=== PATIENT | female | born 1935 | race Caucasian/White ===

== ENCOUNTER 2018-01-25 05:18 | Inpatient (IN) | payer MEDICARE, OTHER ==
[2018-01-18 16:44] LABS: BASOPHILS % (AUTO) 0.4 % (0-1); EOSINOPHILS # (AUTO) 0.1 X10'3 (0-0.9); EOSINOPHILS % (AUTO) 1.8 % (0-6); LYMPHOCYTES # (AUTO) 1.6 X10'3 (1.1-4.8); LYMPHOCYTES % (AUTO) 33.9 % (21-51); MEAN CORPUSCULAR HEMOGLOBIN 29.8 PG (27.0-31.0); MEAN CORPUSCULAR HGB CONC 34.7 % (33.0-36.5); MEAN CORPUSCULAR VOLUME 85.8 FL (78-98); MONOCYTES # (AUTO) 0.4 X10'3 (0-0.9); MONOCYTES % (AUTO) 7.3 % (2-12); NEUTROPHILS # (AUTO) 2.7 X10'3 (1.8-7.7); NEUTROPHILS % (AUTO) 56.6 % (42-75); PRE OP HEMATOCRIT 38.1 % (35.0-45.0); PRE OP HEMOGLOBIN 13.2 g/dL (12.0-16.0); PRE OP PLATELET COUNT 160 X10'3 (140-440); RED BLOOD COUNT 4.43 X10'6 (4.20-5.60); RED CELL DISTRIBUTION WIDTH 13.3 % (11.5-14.5)
[2018-01-18 16:47] LABS: CLARITY,URINE CLEAR (Clear); COLOR,URINE YELLOW (Yellow); GLUCOSE, URINE NEGATIVE (Neg); KETONES,URINE NEGATIVE (Neg); LEUKOCYTE ESTERASE ,URINE NEGATIVE (Neg); NITRITES, URINE NEGATIVE (Neg); OCCULT BLOOD,URINE SMALL (Neg); PH,URINE 6.5 (4.8-8.0); PROTEIN,URINE NEGATIVE (Neg); UROBILINOGEN,URINE 0.2 E.U/dL (0.2-1.0)
[2018-01-18 16:55] LABS: UA COLLECTION TYPE CLN CATCH MIDSTREAM
[2018-01-18 16:58] LABS: BACTERIA,URINE NONE SEEN /HPF (Neg); SQUAMOUS EPITHELIAL CELL,UR FEW /LPF (FEW)
[2018-01-18 17:00] LABS: ALBUMIN 3.8 G/DL (3.4-5.0); ALBUMIN/GLOBULIN RATIO 1.1 (1.1-1.5); ALKALINE PHOSPHATASE 46 IU/L (46-116); BLOOD UREA NITROGEN 16 MG/DL (7-18); BUN/CREATININE RATIO 18.6 (6.6-38.0); CHLORIDE 105 MMOL/L (99-107); CREATININE 0.86 MG/DL (0.40-0.90); PRE OP ALT 20 U/L (30-65); PRE OP ANION GAP 6 (8-16); PRE OP AST 17 U/L (10-37); PRE OP BILIRUB, TOTAL 0.2 MG/DL (0.0-1.0); PRE OP GLUCOSE 105 MG/DL (70-104); PRE OP POTASSIUM 3.6 MMOL/L (3.4-5.1); PRE OP SODIUM 144 MMOL/L (135-145); TOTAL CARBON DIOXIDE 32.6 MMOL/L (24-32); TOTAL PROTEIN 7.2 G/DL (6.4-8.2); eGFR 63 ML/MIN
[2018-01-25] VITALS (20 sets, daily range): BP systolic 102–167; BP diastolic 48–80
[~2018-01-25] VITALS: Ht 157.5 cm; Wt 57.6 kg
[~2018-01-25 05:18] MED LIST: ASPI81TA46 PO; CHOL100046 PO; LUTE40CA PO; NEBI10TA2 PO; ringers solution, lacted 1,000 ML IV SCH
[2018-01-25] MEDS ORDERED: gabapentin 300mg capsule PO ONE (05:30)
[2018-01-25] MEDS ORDERED: tranexamic acid inj. 1,000 MG in normal saline 100ml IV soln 90 ML IV ONE ×2 (05:30→07:10)
[2018-01-25] MEDS ORDERED: famotidine 20mg tablet PO ONE (05:30)
[2018-01-25] MEDS ORDERED: acetaminophen 325mg tablet PO ONE (05:30)
[2018-01-25] MEDS ORDERED: celeCOXIB 100mg capsule PO ONE (05:30)
[2018-01-25] MEDS ORDERED: DOCUMENT DATE & TIME OF BETA-BLOCKER PO ONE (05:30)
[2018-01-25] MEDS ORDERED: oxyCODONE SR 10mg (sust. release) tab PO ONE (05:30)
[2018-01-25] MEDS ORDERED: VANCOMYCIN INJ 1000 MG in NORMAL SALINE 250ml IV.SOLN IV ONE (05:30)
[2018-01-25] MEDS ORDERED: clindamycin-Cleocin 900mg/D5W 50 ML IV ONE (05:30)
[2018-01-25] MEDS ORDERED: metoclopramide 5 mg/ml inj IV ONE (05:30)
[2018-01-25] MEDS ORDERED: LIDOcaine 1% (10mg/ml) 2ml vial ONE (05:44)
[2018-01-25] MEDS ORDERED: metoclopramide 10mg tablet PO ONE (06:11)
[2018-01-25] MEDS ORDERED: ketorolac trometh. 30mg/ml inj. ONE (06:40)
[2018-01-25] MEDS ORDERED: BUPIVAcaine 0.5% inj/PF 30 ml vial ONE (06:40)
[2018-01-25] MEDS ORDERED: cloNIDine hcl/PF 100mcg/ml inj ONE ×2 (06:40→07:19)
[2018-01-25] MEDS ORDERED: epiNEPHrine 1 mg/ml inj ONE (06:41)
[2018-01-25] MEDS ORDERED: vancomycin 1,000mg inj ONE (06:41)
[2018-01-25] MEDS ORDERED: dexamethasone 4mg/ml inj ONE (07:19)
[2018-01-25] MEDS ORDERED: fentaNYL/PF 50MCG/1 ML 2ML syringe ONE (07:22)
[2018-01-25] MEDS ORDERED: midazolam 2 mg/2 ml injection ONE (07:23)
[2018-01-25] MEDS ORDERED: MORPHINE SULFATE/PF 0.5 MG/ML 10ML AMPUL ONE (07:23)
[2018-01-25] MEDS ORDERED: LIDOcaine 2% (20mg/ml) 5ml vial ONE (09:21)
[2018-01-25] MEDS ORDERED: diphenhydrAMINE 50 mg/ml inj ONE (09:21)
[2018-01-25] MEDS ORDERED: propofol inj 20 ML IV ONE (09:21)
[2018-01-25] MEDS ORDERED: naloxone 2mg/2ml inj 1.1 MG in normal saline 500ml IV soln 500 ML IV PRN (10:21)
[2018-01-25] MEDS ORDERED: ringers solution, lacted 1,000 ML IV SCH (10:21)
[2018-01-25] MEDS ORDERED: morphine 2 MG/ML inj. syringe IV PRN (10:25)
[2018-01-25] MEDS ORDERED: ondansetron/PF 4mg/2ml inj IV PRN ×3 (10:25→11:30)
[2018-01-25] MEDS ORDERED: diphenhydrAMINE 50 mg/ml inj IV PRN (10:25)
[2018-01-25] MEDS ORDERED: bisacodyl 10mg suppository rectal RC PRN ×2 (11:30→13:10)
[2018-01-25] MEDS ORDERED: diphenhydrAMINE 25mg capsule PO PRN ×4 (11:30→13:10)
[2018-01-25] MEDS ORDERED: acetaminophen 325mg tablet PO PRN ×2 (11:30→13:10)
[2018-01-25] MEDS ORDERED: oxyCODONE/APAP 10/325mg tablet PO PRN (11:30)
[2018-01-25] MEDS ORDERED: HYDROmorphone inj. 0.5 MG/0.5 ML DISP.SYRIN IV PRN ×4 (11:30→13:10)
[2018-01-25] MEDS ORDERED: magnesium hydroxide 30ml (MOM) UD suspension PO PRN ×2 (11:30→13:10)
[2018-01-25] MEDS: potassium cl 20mEq in 1/2 NS 1,000 ML IV SCH ×3 (12:22→20:38)
[2018-01-25] MEDS ORDERED: HYDROcodone/acetaminophen 10/325mg tab PO PRN (13:10)
[2018-01-25] MEDS ORDERED: oxyCODONE/APAP 10/325mg tablet PO SCH (14:00)
[2018-01-25] MEDS ORDERED: clindamycin-Cleocin 900mg/D5W 50 ML IV SCH (16:00)
[2018-01-25] MEDS: clindamycin-Cleocin 900mg/D5W 50 ML IV SCH ×2 (17:00→23:47)
[2018-01-25] MEDS ORDERED: vancomycin/NS 1 GM ADD-VANTAGE 250 ML IV SCH (20:00)
[2018-01-25] MEDS: sennosides 8.6mg tablet PO SCH (20:36)
[2018-01-25] MEDS: HYDROcodone/acetaminophen 10/325mg tab PO PRN (20:36)
[2018-01-25] MEDS: celeCOXIB 100mg capsule PO SCH (20:37)
[2018-01-25] MEDS: gabapentin 300mg capsule PO SCH (20:37)
[2018-01-25] MEDS: ascorbic acid 500mg tablet PO SCH (20:37)
[2018-01-25] MEDS ORDERED: sennosides 8.6mg tablet PO SCH (21:00)
[2018-01-26 02:04] VITALS: BP 107/50
[2018-01-26] MEDS: potassium cl 20mEq in 1/2 NS 1,000 ML IV SCH ×6 (05:37→21:07)
[2018-01-26] MEDS: HYDROcodone/acetaminophen 10/325mg tab PO PRN ×3 (05:38→19:33)
[2018-01-26 06:03] LABS: BASOPHILS % (AUTO) 0.2 % (0-1); EOSINOPHILS # (AUTO) 0.1 X10'3 (0-0.9); EOSINOPHILS % (AUTO) 1.1 % (0-6); LYMPHOCYTES # (AUTO) 1.1 X10'3 (1.1-4.8); LYMPHOCYTES % (AUTO) 20.5 % (21-51); MEAN CORPUSCULAR HEMOGLOBIN 30.3 PG (27.0-31.0); MEAN CORPUSCULAR HGB CONC 35.7 % (33.0-36.5); MEAN CORPUSCULAR VOLUME 84.9 FL (78-98); MEAN PLATELET VOLUME 9.5 FL (7.4-10.4); MONOCYTES # (AUTO) 0.5 X10'3 (0-0.9); MONOCYTES % (AUTO) 9.8 % (2-12); NEUTROPHILS # (AUTO) 3.6 X10'3 (1.8-7.7); NEUTROPHILS % (AUTO) 68.4 % (42-75); PLATELET COUNT 106 X10'3 (140-440); RED BLOOD COUNT 3.29 X10'6 (4.20-5.60); RED CELL DISTRIBUTION WIDTH 12.8 % (11.5-14.5); WHITE BLOOD COUNT 5.3 X10'3 (4.5-11.0)
[2018-01-26 06:29] LABS: ANION GAP 5 (8-16); CHLORIDE 103 MMOL/L (99-107); POTASSIUM 4.3 MMOL/L (3.5-5.1); SODIUM 135 MMOL/L (135-145); TOTAL CARBON DIOXIDE 27.5 MMOL/L (24-32)
[2018-01-26 06:43] VITALS: BP 114/49
[2018-01-26] MEDS: gabapentin 300mg capsule PO SCH ×3 (08:17→19:33)
[2018-01-26] MEDS: celeCOXIB 100mg capsule PO SCH ×2 (08:17→19:32)
[2018-01-26] MEDS: clindamycin-Cleocin 900mg/D5W 50 ML IV SCH (08:17)
[2018-01-26] MEDS: ascorbic acid 500mg tablet PO SCH ×2 (08:18→19:33)
[2018-01-26] MEDS: vitamin D (cholecalciferol) 1,000 unit tablet PO SCH (08:18)
[2018-01-26] MEDS: aspirin 325mg tablet PO SCH (08:18)
[2018-01-26] MEDS: multivitamins, therapeutics tablet PO SCH (08:18)
[2018-01-26] MEDS ORDERED: aspirin 325mg tablet PO SCH (08:30)
[2018-01-26 10:05] VITALS: BP 115/67
[2018-01-26] MEDS: Protein Smoothie (high protein) 240ml (8oz) cup PO SCH ×2 (13:06→18:58)
[2018-01-26] MEDS: ondansetron/PF 4mg/2ml inj IV PRN ×2 (13:08→19:31)
[2018-01-26 14:00] VITALS: BP 99/51
[2018-01-26 17:46] VITALS: BP 126/51
[2018-01-26] MEDS: sennosides 8.6mg tablet PO SCH (19:33)
[2018-01-26 22:07] VITALS: BP 173/67
[2018-01-27] MEDS: potassium cl 20mEq in 1/2 NS 1,000 ML IV SCH ×2 (03:50→05:05)
[2018-01-27] MEDS: HYDROcodone/acetaminophen 10/325mg tab PO PRN ×2 (04:29→11:49)
[2018-01-27] MEDS: ondansetron/PF 4mg/2ml inj IV PRN (04:29)
[2018-01-27 05:54] LABS: BASOPHILS % (AUTO) 0.2 % (0-1); EOSINOPHILS # (AUTO) 0.1 X10'3 (0-0.9); EOSINOPHILS % (AUTO) 2.5 % (0-6); HEMATOCRIT 27.9 % (35.0-45.0); HEMOGLOBIN 9.8 g/dl (12.0-16.0); LYMPHOCYTES # (AUTO) 0.9 X10'3 (1.1-4.8); MEAN CORPUSCULAR HEMOGLOBIN 30.2 PG (27.0-31.0); MEAN CORPUSCULAR VOLUME 86.3 FL (78-98); MEAN PLATELET VOLUME 10.6 FL (7.4-10.4); MONOCYTES # (AUTO) 0.6 X10'3 (0-0.9); MONOCYTES % (AUTO) 10.9 % (2-12); NEUTROPHILS % (AUTO) 70.4 % (42-75); PLATELET COUNT 104 X10'3 (140-440); RED BLOOD COUNT 3.24 X10'6 (4.20-5.60); RED CELL DISTRIBUTION WIDTH 12.9 % (11.5-14.5); WHITE BLOOD COUNT 5.7 X10'3 (4.5-11.0)
[2018-01-27 06:00] VITALS: BP 153/62
[2018-01-27] MEDS: multivitamins, therapeutics tablet PO SCH (08:05)
[2018-01-27] MEDS: gabapentin 300mg capsule PO SCH (08:05)
[2018-01-27] MEDS: aspirin 325mg tablet PO SCH (08:05)
[2018-01-27] MEDS: ascorbic acid 500mg tablet PO SCH (08:05)
[2018-01-27] MEDS: vitamin D (cholecalciferol) 1,000 unit tablet PO SCH (08:05)
[2018-01-27] MEDS: celeCOXIB 100mg capsule PO SCH (08:05)
[2018-01-27] MEDS: Protein Smoothie (high protein) 240ml (8oz) cup PO SCH (08:06)
[2018-01-27 08:14] VITALS: BP 106/70
[2018-01-27] MEDS ORDERED: ASPI-1 PO (10:19)
[2018-01-27 11:10] VITALS: BP 115/37
[2018-01-27 18:14] VITALS: BP 204/108
== END 2018-01-27 12:08 | disposition home or self-care (01) | DRG 470 ==
LOC: PAS IN 05:18 → EDSTATUS 07:30 → ORTHO 4S 11:00
PROVIDERS: ADMIT Orthopaedic Surgery; ATTEND Orthopaedic Surgery
PROC: 3E0T3BZ Introduction of Anesthetic Agent into Peripheral Nerves and Plexi, Percutaneous Approach (ICD-10-PCS; 2018-01-25)
PROC: 0SRD0J9 Replacement of Left Knee Joint with Synthetic Substitute, Cemented, Open Approach (ICD-10-PCS; principal; 2018-01-25 07:19)
DX: M17.12 Unilateral primary osteoarthritis, left knee (principal); D62 Acute posthemorrhagic anemia; I10 Essential (primary) hypertension; M81.0 Age-related osteoporosis without current pathological fracture; Z90.710 Acquired absence of both cervix and uterus; Z79.899 Other long term (current) drug therapy; Z80.9 Family history of malignant neoplasm, unspecified
CPT/HCPCS: 36415; 71046; 73560; 80051; 80053; 81001; 82948; 85025; 85610; 85730; 86885; 86900; 86901; 86920; 86922; 87070; 87088; 97116; 97162; 97530; A6255; A6449; A6455; A7000; C1713; C1758; C1776; J0171; J0735; J1100; J1200; J1885; J2001; J2250; J2274; J2405; J2704; J3010; J3370; J3490; J7030; J7120

== ENCOUNTER 2022-11-18 08:27 | Day surgery (SDC) | payer MEDICARE ==
[2022-11-18] VITALS (17 sets, daily range): BP systolic 94–179; BP diastolic 55–102
[~2022-11-18] VITALS: Ht 132.1 cm; Wt 61.5 kg
[~2022-11-18 08:27] MED LIST changes: +ASPI-1 PO; -ASPI81TA46 PO; -ringers solution, lacted 1,000 ML IV SCH
[2022-11-18] MEDS ORDERED: MIDAZolam 1mg/ml 10ml vial IV ONE (09:00)
[2022-11-18] MEDS ORDERED: morphine 10mg/ml inj. IV ONE (09:00)
[2022-11-18] MEDS ORDERED: LORazepam 0.5 MG tablet PO ONE (09:00)
[2022-11-18] MEDS ORDERED: amiodarone 150mg/dext, iso-os 100 ML IV ONE (09:00)
[2022-11-18] MEDS ORDERED: diphenhydrAMINE 25mg capsule PO ONE (09:00)
[2022-11-18] MEDS ORDERED: atropine 0.1mg/ml 10ml syringe IV ONE (09:00)
[2022-11-18] MEDS ORDERED: LUTE20CA PO (09:19)
[2022-11-18] MEDS ORDERED: AMIO100T4 PO (09:19)
[2022-11-18] MEDS ORDERED: NEBI10TA12 PO (09:19)
[2022-11-18] MEDS ORDERED: DORZ10DR2 OP (09:19)
[2022-11-18] MEDS ORDERED: BILB100C PO (09:19)
[2022-11-18] MEDS ORDERED: UBID100T7 PO (09:19)
[2022-11-18] MEDS ORDERED: MAGN250T11 PO (09:19)
[2022-11-18] MEDS ORDERED: APIX5TAB3 PO (09:19)
[2022-11-18 09:57] LABS: BASOPHILS % (AUTO) 0.7 % (0-1); EOSINOPHILS # (AUTO) 0.1 X10'3 (0-0.9); EOSINOPHILS % (AUTO) 0.8 % (0-6); HEMATOCRIT 44.6 % (35.0-45.0); HEMOGLOBIN 15.1 g/dl (12.0-16.0); LYMPHOCYTES % (AUTO) 33.7 % (21-51); MEAN CORPUSCULAR HEMOGLOBIN 29.1 PG (27.0-31.0); MEAN CORPUSCULAR HGB CONC 33.8 g/dL (33.0-36.5); MEAN PLATELET VOLUME 9.1 FL (7.4-10.4); MONOCYTES # (AUTO) 0.5 X10'3 (0-0.9); MONOCYTES % (AUTO) 7.4 % (2-12); NEUTROPHILS # (AUTO) 3.5 X10'3 (1.8-7.7); NEUTROPHILS % (AUTO) 57.4 % (42-75); PLATELET COUNT 171 X10'3 (140-440); RED BLOOD COUNT 5.19 X10'6 (4.20-5.60); RED CELL DISTRIBUTION WIDTH 13.8 % (11.5-14.5); WHITE BLOOD COUNT 6.1 X10'3 (4.5-11.0)
[2022-11-18 10:19] LABS: ALBUMIN 4.3 G/DL (3.4-5.0); ANION GAP 6 (8-16); BLOOD UREA NITROGEN 17 MG/DL (7-18); BUN/CREATININE RATIO 14.3 (6.6-38.0); CALCIUM 9.6 MG/DL (8.5-10.1); CHLORIDE 103 MMOL/L (99-107); CREATININE 1.19 MG/DL (0.40-0.90); GLUCOSE 92 MG/DL (70-104); POTASSIUM 4.2 MMOL/L (3.5-5.1); SODIUM 141 MMOL/L (135-145); TOTAL CARBON DIOXIDE 32.3 MMOL/L (24-32); eGFR 43 ML/MIN
[2022-11-18] MEDS ORDERED: pneumococcal 23-VAL P-sac vacc 25 mcg/0.5ml vial IMVAC ONE (20:00)
== END 2022-11-18 12:50 | disposition home or self-care (01) ==
LOC: SSTAY O 08:27
PROVIDERS: ATTEND Internal Medicine Cardiovascular Disease
DX: I48.19 Other persistent atrial fibrillation (principal); I11.0 Hypertensive heart disease with heart failure; I50.30 Unspecified diastolic (congestive) heart failure; E78.5 Hyperlipidemia, unspecified; I47.1 Supraventricular tachycardia; I49.5 Sick sinus syndrome; Z79.01 Long term (current) use of anticoagulants; Z79.899 Other long term (current) drug therapy; Z23 Encounter for immunization
CPT/HCPCS: 36415; 80048; 85025; 85610; 90732; 92960; 93005; G0009; J2250; J2274; J7030; A4620

== ENCOUNTER 2023-02-05 08:35 | Emergency (ER) | payer MEDICARE ==
[~2023-02-05] VITALS: Ht 157.5 cm; Wt 60.5 kg
[~2023-02-05 08:35] MED LIST changes: +AMIO100T4 PO; +APIX5TAB3 PO; -ASPI-1 PO; +BILB100C PO; +DORZ10DR2 OP; +LUTE20CA PO; -LUTE40CA PO; +MAGN250T11 PO; +NEBI10TA12 PO; -NEBI10TA2 PO; +UBID100T7 PO
[2023-02-05] MEDS ORDERED: meclizine 12.5mg tablet PO ONE (09:00)
[2023-02-05] MEDS ORDERED: ondansetron 4mg rapidly disintigrating tab PO ONE (09:00)
[2023-02-05] MEDS ORDERED: MECL-231 PO (09:57)
[2023-02-05] MEDS ORDERED: ONDA4TAB12 PO (09:57)
[2023-02-05 10:29] VITALS: BP 150/61
== END 2023-02-05 10:34 | disposition home or self-care (01) ==
LOC: ER 08:36
DX: H81.10 Benign paroxysmal vertigo, unspecified ear (principal); R00.1 Bradycardia, unspecified; M19.90 Unspecified osteoarthritis, unspecified site; Z88.1 Allergy status to other antibiotic agents; Z88.8 Allergy status to other drugs, medicaments and biological substances
CPT/HCPCS: 93005; 99283; J8597

== ENCOUNTER 2023-04-07 05:51 | Day surgery (SDC) | payer MEDICARE ==
[2023-04-06 12:31] LABS: ALBUMIN 3.9 G/DL (3.4-5.0); ANION GAP 5 (8-16); BASOPHILS % (AUTO) 0.4 % (0-1); BLOOD UREA NITROGEN 21 MG/DL (7-18); BUN/CREATININE RATIO 16.2 (10.0-20.0); CALCIUM 9.1 MG/DL (8.5-10.1); CHLORIDE 103 MMOL/L (99-107); EOSINOPHILS % (AUTO) 0.5 % (0-6); GLUCOSE 118 MG/DL (70-104); HEMATOCRIT 40.2 % (35.0-45.0); HEMOGLOBIN 13.7 g/dl (12.0-16.0); LYMPHOCYTES # (AUTO) 1.3 X10'3 (1.1-4.8); LYMPHOCYTES % (AUTO) 26.6 % (21-51); MEAN CORPUSCULAR VOLUME 88.5 FL (78-98); MEAN PLATELET VOLUME 9.4 FL (7.4-10.4); MONOCYTES # (AUTO) 0.4 X10'3 (0-0.9); MONOCYTES % (AUTO) 7.4 % (2-12); NEUTROPHILS # (AUTO) 3.1 X10'3 (1.8-7.7); NEUTROPHILS % (AUTO) 65.1 % (42-75); PLATELET COUNT 185 X10'3 (140-440); POTASSIUM 3.4 MMOL/L (3.5-5.1); RED BLOOD COUNT 4.54 X10'6 (4.20-5.60); RED CELL DISTRIBUTION WIDTH 13.3 % (11.5-14.5); SODIUM 142 MMOL/L (135-145); TOTAL CARBON DIOXIDE 34.3 MMOL/L (24-32); WHITE BLOOD COUNT 4.8 X10'3 (4.5-11.0); eGFR 39 ML/MIN
[2023-04-06 12:35] LABS: APTT 27 SECONDS (22-32)
[2023-04-07] VITALS (12 sets, daily range): BP systolic 108–171; BP diastolic 42–65
[~2023-04-07] VITALS: Ht 157.5 cm; Wt 60.8 kg
[~2023-04-07 05:51] MED LIST changes: -DORZ10DR2 OP; +DORZ10DR26 OP; +MECL-231 PO; +ONDA4TAB12 PO
[2023-04-07] MEDS ORDERED: clindamycin-Cleocin 900mg/D5W 50 ML IV ONE (06:17)
[2023-04-07] MEDS ORDERED: normal saline 1,000 ML IV SCH (06:20)
[2023-04-07] MEDS ORDERED: fentaNYL/PF 50MCG/1 ML 2ML syringe ONE ×2 (07:20→09:16)
[2023-04-07] MEDS ORDERED: LIDOcaine 1% W/epiNEPHrine 1:100,000 20ml vial ONE ×2 (07:20→07:48)
[2023-04-07] MEDS ORDERED: midazolam 1 mg/ML 2ml injection ONE ×2 (07:20→08:41)
[2023-04-07] MEDS ORDERED: vancomycin 1,000mg inj ONE ×2 (07:20→07:52)
[2023-04-07] MEDS ORDERED: normal saline 1000ml 1,000 ML IV SCH (10:25)
[2023-04-07] MEDS ORDERED: vancomycin/NS 1 GM ADD-VANTAGE 250 ML X 1 DOSE IV ONE (11:00)
== END 2023-04-07 15:00 | disposition home or self-care (01) ==
LOC: SSTAY O 05:51
PROVIDERS: ATTEND Internal Medicine Cardiovascular Disease
DX: I49.5 Sick sinus syndrome (principal); I48.0 Paroxysmal atrial fibrillation; E78.5 Hyperlipidemia, unspecified; I47.1 Supraventricular tachycardia; M81.0 Age-related osteoporosis without current pathological fracture; M51.16 Intervertebral disc disorders with radiculopathy, lumbar region; M19.90 Unspecified osteoarthritis, unspecified site; I11.0 Hypertensive heart disease with heart failure; I50.30 Unspecified diastolic (congestive) heart failure; Z79.899 Other long term (current) drug therapy; Z79.01 Long term (current) use of anticoagulants; Z86.11 Personal history of tuberculosis; Z90.710 Acquired absence of both cervix and uterus; Z98.890 Other specified postprocedural states; Z72.89 Other problems related to lifestyle; Z88.0 Allergy status to penicillin; Z88.1 Allergy status to other antibiotic agents; Z82.49 Family history of ischemic heart disease and other diseases of the circulatory system; Z82.3 Family history of stroke
CPT/HCPCS: 33208; 36415; 71046; 80048; 85025; 85610; 85730; 93005; 99152; 99153; C1785; C1898; J2250; J3010; J3370; J3490; J7030; A4565; A6258; A6449

== ENCOUNTER 2025-08-03 14:02 | Emergency (ER) | payer MEDICARE ==
[~2025-08-03] VITALS: Ht 157.5 cm; Wt 61.8 kg
[~2025-08-03 14:02] MED LIST changes: -AMIO100T4 PO; +AMIO200T76 PO; -BILB100C PO; +CARV-49 PO; -CHOL100046 PO; -DORZ10DR26 OP; +EMPA10TA PO; +FURO40TA4 PO; -LUTE20CA PO; -MAGN250T11 PO; -MECL-231 PO; -NEBI10TA12 PO; -ONDA4TAB12 PO; +SACU1TAB PO; +SPIR25TA5 PO; -UBID100T7 PO
[2025-08-03 14:05] VITALS: BP 138/67; PULSE 72; RESP 16; TEMP 97.3; O2SAT 94
--- NOTE | 2025-08-03 16:02 | RADIOLOGY REPORT ---
CLINICAL INDICATION: TRauma RIGHT 5TH DIGIT TECHNIQUE: DI FINGER(S) Comparison: None FINDINGS/IMPRESSION: : There is no definite acute fracture or dislocation. Bony demineralization. 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 Moderate to marked osteoarthritis of the 2nd distal interphalangeal joint and moderate degenerative change of the 2nd proximal interphalangeal joint. 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 Degenerative change of the radiocarpal joint.
--- NOTE | 2025-08-03 16:55 | Physician Documentation ---
History of Present Illness ~ Chief Complaint: Finger pain Stated Complaint: FINGER PAIN Time Seen by MD: 14:52 Primary Medical Doctor: klever MORALES 89-year-old female on Xarelto who accidentally closed her 3, 4 and pinky finger in the door last night. Presents to the emergency department with concerns and continue bleeding in wonders if she may have a fracture. Created a small la ceration and skin tear to the distal phalanx. There was no D IP or PIP involvement. Presents to the emergency department today wondering if it can be suture. Tetanus within 5 years: Yes Medication Reconciliation Allergies: Coded Allergies: cefuroxime (Verified Allergy, Unknown, 08/03/25) Scheduled Amiodarone Hcl (Cordarone), 200 MG PO DAILY, (Reported) Apixaban (Eliquis), 1 TAB PO BID, (Reported) Bacitracin Oint Packet* (Bacitracin Oint Packet*), 1 APPLIC TP BID Carvedilol (Coreg), 1 TAB PO Q12H Empagliflozin (Jardiance), 1 TAB PO DAILY Furosemide (Furosemide), 1 TAB PO DAILY Sacubitril/Valsartan (Entresto 24 mg-26 mg Tablet), 1 TAB PO Q12H Spironolactone (Spironolactone), 25 MG PO DAILY Past Medical History Past Medical History: Atrial Fibrillation, Arthritis, Breast Cancer Past Surgical History: noncontributory Patient History: FH: heart disease FATHER, , Age: 83, Cause: Lip cancer MOTHER, , Age: 94, Cause: Old age FH: liver cancer son son Oropharyngeal cancer FATHER, , Age: 83, Cause: Lip cancer Alcohol Use: None Drug Use: none Lives with: S/O Lives In: Home Review of Systems All Other Systems at this time: Reviewed and Negative Musculoskeletal: Reports: pain Integumentary: Reports: laceration(s) Physical Exam Vital Signs: Temperature: 97.3, Source: Temporal, Heart Rate: 72, Respiratory Rate: 16, BP: 138/67, Pulse Oximetry: 94, Weight: 61.820 Oxygen Flow Rate: 0 General Appearance: alert, WD/WN, mild distress EENT: PERRL/EOMI Neck: normal inspection Respiratory: lungs clear Hand: normal inspection Digit: laceration (Superficial laceration to the distal pulp of the left pinky. No joint involvement. FDP FDS grossly intact.) Digit Strength: normal Nail: normal inspection Nail Bed: normal inspection Distal Function: normal pulse Skin: normal color Neurologic: oriented x4 Psychiatric: normal mood/affect Progress Results/Orders Results/Orders Orders - HORTENSIA SHINE Finger(S) (08/03/25 ) Completed Orders - HORTENSIA SHINE Finger(S) (08/03/25 ) Vital Signs 08/03/25 14:05 Temp 97.3 Pulse 72 Resp 16 B/P (MAP) 138/67 Pulse Ox 94 O2 Flow Rate 0 Medical Decision Making Additional Comment 89-year-old female who is right-hand dominant injured her left pinky with delayed presentation to the emergency department for wound management. She has a proximally 0.5 cm superficial wound with skin tear to the distal phalanx not involving the joint. Shared decision making with patient regarding use a Surgicel and stephanie tape of the pharynx together. No indication for tetanus update. Patient will keep wound clean and dressed for 2-3 days and then apply topical bacitracin. X-ray imaging obtained today is reassuring for no fracture or foreign body. Patient's safely discharged in the emergency department with all questions concerns. Rx for bacitracin forwarded to the pharmacy. Departure Disposition: HOME / SELF CARE / HOMELESS Impression: Primary Impression: Finger injury Qualified Codes: S69.92XA - Unspecified injury of left wrist, hand and finger(s), initial encounter Condition: Improved Discharge Instructions: Facial Laceration, Kode-yx-Sews Additional Instructions: Keeps please keep your finger dressed and dry for 2-3 days and uncover any evaluate for signs of infection. Apply topical bacitracin daily to well healed. Return to the emergency department as needed thank you for visiting [facility]. Referrals: NO PRIMARY CARE PROVIDER (PCP) Prescriptions Bacitracin Oint Packet* (Bacitracin Oint Packet*) 1 Each Packet 1 APPLIC TP BID for 10 Days, #15 GM Prov: HORTENSIA SHINE 08/03/25 Education Educated: Patient Educated regarding: diagnosis, treatment Signature Scribe Signature: . Attestation: HORTENSIA HO Aug 03, 2025 16:55
[2025-08-03] MEDS ORDERED: BACI1PAC7 TP (17:24)
== END 2025-08-03 17:44 | disposition home or self-care (01) ==
LOC: ER 14:03
DX: S61.217A Laceration without foreign body of left little finger without damage to nail, initial encounter (principal); M19.90 Unspecified osteoarthritis, unspecified site; I48.91 Unspecified atrial fibrillation; Z79.01 Long term (current) use of anticoagulants; Z85.3 Personal history of malignant neoplasm of breast; Z88.1 Allergy status to other antibiotic agents; Z79.899 Other long term (current) drug therapy; W23.0XXA Caught, crushed, jammed, or pinched between moving objects, initial encounter; Y93.89 Activity, other specified; Y92.89 Other specified places as the place of occurrence of the external cause; Y99.8 Other external cause status
CPT/HCPCS: 73140; 99284